=== PATIENT | female | born 1990 | race African-American/Black ===

== ENCOUNTER 2018-08-08 21:35 | Emergency (ER) | payer SELFPAY ==
[~2018-08-08] VITALS: Ht 157.5 cm; Wt 52.0 kg
[2018-08-08] MEDS ORDERED: SODIUM CHLORIDE 0.9% 1,000 ML IV ONE (21:57)
[2018-08-08] MEDS ORDERED: ONDANSETRON HCL 4MG/2ML INJ IV ONE (22:00)
[2018-08-08 22:41] LABS: RED BLOOD CELL COUNT 4.74 mill/uL (4.2-5.4)
[2018-08-08 22:42] LABS: BASOPHILS % 0.5 % (0.0-2.0); EOSINOPHILS % 0.4 % (0.0-5.0); HEMATOCRIT. 41.2 % (36.0-48.0); LYMPHOCYTES % 15.4 % (20.0-50.0); MEAN CORPUSCULAR HEMOGLOBIN 29.5 pg (28.0-32.0); MEAN PLATELET VOLUME 8.6 fl (7.4-10.4); NEUTROPHILS % 77.7 % (40.0-76.0); PLATELET 244 x1000/uL (130-400); RED CELL DISTRIBUTION WIDTH 13.1 % (11.6-14.6)
[2018-08-08 22:45] LABS: CHLORIDE 100 mEq/L (98-107)
[2018-08-08 23:09] LABS: B-HCG QUANTITATIVE 131480 mIU/mL (<3)
[2018-08-09 02:00] LABS: CLARITY URINE CLEAR (CLEAR); COLOR URINE DARK YELLOW (YELLOW); KETONES URINE 4+ (NEGATIVE); LEUKOCYTE ESTERASE URINE TRACE (NEGATIVE); NITRITE URINE NEGATIVE (NEGATIVE); OCCULT BLOOD URINE NEGATIVE (NEGATIVE); PH URINE 5.5 (4.5-8.0); PROTEIN URINE TRACE (NEGATIVE); SPECIFIC GRAVITY URINE 1.031 (1.005-1.030)
[2018-08-09] MEDS ORDERED: SODIUM CHLORIDE 0.9% 1,000 ML IV ONE (02:15)
[2018-08-09] MEDS ORDERED: PANTOPRAZOLE SODIUM 40 MG/VIAL IV ONE (02:15)
[2018-08-09] MEDS ORDERED: ACETAMINOPHEN 325MG TABLET PO ONE (02:45)
[2018-08-09 03:30] VITALS: BP 105/59
== END 2018-08-09 03:33 | disposition home or self-care (01) ==
LOC: ER 21:35
DX: O21.0 Mild hyperemesis gravidarum (principal); O23.11 Infections of bladder in pregnancy, first trimester; N30.00 Acute cystitis without hematuria; R10.2 Pelvic and perineal pain; Z3A.12 12 weeks gestation of pregnancy
CPT/HCPCS: 36415; 80048; 81003; 84702; 85025; 93005; 96361; 96374; 96375; 99285; C9113; J2405; J7030; Z7610